=== PATIENT | female | born 1980 | race Caucasian/White ===

== ENCOUNTER 2022-06-27 11:30 | Observation (INO) | payer MEDICAID ==
[~2022-06-27] VITALS: Ht 155 cm; Wt 82.6 kg
[2022-06-27 12:09] VITALS: BP 114/70
[2022-06-27] MEDS: ACETAMINOPHEN EXTRA STRENGTH 500 MG TAB PO PRN (16:11)
[2022-06-27 17:35] LABS: BASOPHILS # (AUTO) 0.1 K/uL (0.00-0.22); BASOPHILS % (AUTO) 0.8 % (0.0-2.0); EOSINOPHILS # (AUTO) 0.2 K/uL (0-0.4); EOSINOPHILS % (AUTO) 1.9 % (0.0-4.0); HEMOGLOBIN 11.1 g/dL (12.0-16.0); LYMPHOCYTES # (AUTO) 1.8 K/uL (2.5-16.5); MEAN CORPUSCULAR HEMOGLOBIN 32 pg (27-31); MEAN CORPUSCULAR HGB CONC 34 g/dL (33-37); MONOCYTES # (AUTO) 0.7 K/uL (0.8-1.0); MONOCYTES % (AUTO) 6.8 % (1.7-9.3); NEUTROPHILS % (AUTO) 71.5 % (42.2-75.2); PLATELET COUNT (AUTO) 274 K/uL (140-450); RED BLOOD CELL COUNT(AUTO) 3.48 MIL/uL (4.20-5.40); RED CELL DISTRIBUTION WIDTH 15.2 % (11.6-13.7); WHITE BLOOD COUNT (AUTO) 9.7 K/uL (4.8-10.8)
[2022-06-27 18:30] LABS: CARBON DIOXIDE 24.9 mmol/L (21-32); POTASSIUM 3.9 mmol/L (3.5-5.1)
[2022-06-27 18:31] LABS: ALBUMIN 2.4 g/dL (3.4-5.0); CREATININE 0.6 mg/dL (0.6-1.3); TOTAL BILIRUBIN 0.2 mg/dL (0.0-1.0)
--- NOTE | 2022-06-28 09:59 | NUR ---
PATIENT HAS BEEN SCREENED AND CATEGORIZED LOW NUTRITION RISK. PATIENT WILL BE SEEN WITHIN 7 DAYS OF ADMISSION. 07/04/[address]
[2022-06-28] MEDS: ACETAMINOPHEN EXTRA STRENGTH 500 MG TAB PO PRN (12:07)
[2022-06-28] MEDS ORDERED: ACETAMINOPHEN EXTRA STRENGTH 500 MG TAB PO PRN (17:00)
== END 2022-06-28 13:00 | disposition home or self-care (01) ==
LOC: MLD 11:30
PROVIDERS: ADMIT Obstetrics & Gynecology; ATTEND Obstetrics & Gynecology
DX: O26.892 Other specified pregnancy related conditions, second trimester (principal); M25.562 Pain in left knee; M25.561 Pain in right knee; Z3A.26 26 weeks gestation of pregnancy
CPT/HCPCS: 36415; 59025; 80053; 82607; 84443; 85025; 85651; 86038; 86140; 86430; 93970; G0378; Q0092